=== PATIENT | female | born 1960 | race African-American/Black ===

== ENCOUNTER 2023-07-27 05:44 | Emergency (ER) | payer MEDICARE, MEDICAID ==
[~2023-07-27] VITALS: Ht 162.6 cm; Wt 180.0 kg
[2023-07-27 06:24] VITALS: BP 142/79; PULSE 68; RESP 18; O2SAT 99
[2023-07-29] MEDS ORDERED: KEPP500 MT (10:36)
== END 2023-07-27 11:02 | disposition left against medical advice (07) ==
LOC: ER 05:44
DX: R07.89 Other chest pain (principal); M54.9 Dorsalgia, unspecified; Z53.21 Procedure and treatment not carried out due to patient leaving prior to being seen by health care provider
CPT/HCPCS: 99281

== ENCOUNTER 2023-08-05 22:18 | Emergency (ER) | payer MEDICAID, MEDICARE ==
[~2023-08-05] VITALS: Ht 165.1 cm; Wt 100.0 kg
[~2023-08-05 22:18] MED LIST: AMLO10TA80 MT; KEPP500 MT
[2023-08-05 22:33] VITALS: BP 139/85; PULSE 100; RESP 20; TEMP 97.6; O2SAT 98
[2023-08-05] MEDS ORDERED: LEVETIRACETAM 500MG TABLET PO ONE (23:00)
[2023-08-05] MEDS ORDERED: LEVETIRACETAM 500MG TABLET PO NR (23:15)
[2023-08-05 23:20] LABS: BASOPHILS % 0.5 % (0.0-2.0); EOSINOPHILS % 0.3 % (0.0-5.0); HEMATOCRIT. 39.8 % (36.0-48.0); HEMOGLOBIN. 13.4 g/dL (12.0-16.0); LYMPHOCYTES % 18.7 % (20.0-50.0); MEAN CORPUSCULAR HEMOGLOBIN 32.1 pg (28.0-32.0); MEAN CORPUSCULAR HGB CONC 33.5 g/dL (31.0-37.0); MEAN CORPUSCULAR VOLUME 95.6 fL (81.0-99.0); MEAN PLATELET VOLUME 8.7 fl (7.4-10.4); NEUTROPHILS % 74.5 % (40.0-76.0); PLATELET 275 x1000/uL (130-400); RED BLOOD CELL COUNT 4.17 mill/uL (4.2-5.4); RED CELL DISTRIBUTION WIDTH 13.7 % (11.6-14.6); WHITE BLOOD COUNT 8.1 x1000/uL (4.5-11.0)
[2023-08-05 23:38] LABS: ALANINE AMINOTRANSFERASE 9 IU/L (10-49); ALBUMIN 4.5 g/dL (3.2-4.8); ASPARTATE AMINOTRANSFERASE 13 IU/L (<34); BILIRUBIN TOTAL 0.3 mg/dL (0.1-1.0); CALCIUM 9.4 mg/dL (8.7-10.4); CARBON DIOXIDE 24 mEq/L (21-32); CHLORIDE 103 mEq/L (98-107); CREATININE 0.9 mg/dL (0.6-1.0); GLUCOSE 106 mg/dL (70-105); POTASSIUM 3.5 mEq/L (3.5-5.1); PROTEIN TOTAL 8.8 g/dL (6.0-8.3); SODIUM 136 mEq/L (136-145); UREA NITROGEN BLOOD 19 mg/dL (9-23)
[2023-08-06 00:16] LABS: ETHANOL BLOOD < 10 mg/dL (<10)
[2023-08-06] MEDS ORDERED: LEVE1000 MT (03:59)
== END 2023-08-06 04:16 | disposition home or self-care (01) ==
LOC: ER 22:18
DX: R56.9 Unspecified convulsions (principal); I50.9 Heart failure, unspecified; I11.0 Hypertensive heart disease with heart failure; Z88.6 Allergy status to analgesic agent; Z88.5 Allergy status to narcotic agent; Z88.8 Allergy status to other drugs, medicaments and biological substances
CPT/HCPCS: 36415; 80053; 80320; 82962; 85025; 99283; G0480

== ENCOUNTER 2023-08-09 02:35 | Emergency (ER) | payer MEDICARE, MEDICAID ==
[~2023-08-09] VITALS: Ht 165.1 cm; Wt 81.6 kg
[~2023-08-09 02:35] MED LIST changes: +LEVE1000 MT
[2023-08-09 03:23] VITALS: BP 163/93; PULSE 87; RESP 16; TEMP 98.5; O2SAT 98
[2023-08-09] MEDS ORDERED: KEPP500 PO (06:21)
[2023-08-09] MEDS ORDERED: AMLO10TA80 PO (06:21)
[2023-08-09] MEDS ORDERED: FAMO20TA8 PO (06:21)
[2023-08-09] MEDS ORDERED: LEVE1000 PO (06:21)
[2023-08-09] MEDS ORDERED: LEVETIRACETAM 500MG/5ML CUP PO ONE (07:30)
== END 2023-08-09 08:04 | disposition home or self-care (01) ==
LOC: ER 02:35
DX: Z76.0 Encounter for issue of repeat prescription (principal); I11.0 Hypertensive heart disease with heart failure; I50.9 Heart failure, unspecified; Z86.59 Personal history of other mental and behavioral disorders; Z98.890 Other specified postprocedural states; Z79.899 Other long term (current) drug therapy; Z88.0 Allergy status to penicillin; Z88.6 Allergy status to analgesic agent; Z88.9 Allergy status to unspecified drugs, medicaments and biological substances; Z88.5 Allergy status to narcotic agent; Z88.8 Allergy status to other drugs, medicaments and biological substances
CPT/HCPCS: 99283

== ENCOUNTER 2024-04-16 19:54 | Emergency (ER) | payer BC, MEDICAID ==
[~2024-04-16] VITALS: Ht 165.1 cm; Wt 94.0 kg
[~2024-04-16 19:54] MED LIST changes: +AMLO10TA80 PO; +FAMO20TA8 PO; +KEPP500 PO; +LEVE1000 PO
[2024-04-16 20:16] VITALS: O2SAT 99
[2024-04-17 00:57] LABS: BASOPHILS % 0.7 % (0.0-2.0); EOSINOPHILS % 1.7 % (0.0-5.0); HEMOGLOBIN. 12.7 g/dL (12.0-16.0); LYMPHOCYTES % 27.3 % (20.0-50.0); MEAN CORPUSCULAR HEMOGLOBIN 32.2 pg (28.0-32.0); MEAN CORPUSCULAR HGB CONC 33.4 g/dL (31.0-37.0); MEAN CORPUSCULAR VOLUME 96.4 fL (81.0-99.0); MEAN PLATELET VOLUME 8.2 fl (7.4-10.4); MONOCYTES % 8.8 % (2.0-8.0); NEUTROPHILS % 61.5 % (40.0-76.0); PLATELET 232 x1000/uL (130-400); RED BLOOD CELL COUNT 3.95 mill/uL (4.2-5.4); RED CELL DISTRIBUTION WIDTH 14.8 % (11.6-14.6); WHITE BLOOD COUNT 6.7 x1000/uL (4.5-11.0)
[2024-04-17 01:00] LABS: CARBON DIOXIDE 25 mEq/L (21-32); CHLORIDE 104 mEq/L (98-107); POTASSIUM 3.2 mEq/L (3.5-5.1); SODIUM 137 mEq/L (136-145)
[2024-04-17 01:06] LABS: GLUCOSE 136 mg/dL (70-105); UREA NITROGEN BLOOD 20 mg/dL (9-23)
[2024-04-17 01:07] LABS: TROPONIN I HIGH SENSITIVITY 4 ng/L (3.0-34)
[2024-04-17] MEDS ORDERED: LEVE1000 MT (01:56)
[2024-04-17 01:58] VITALS: BP 132/76; PULSE 90; RESP 18; TEMP 36.66960; O2SAT 99
[2024-04-17] MEDS ORDERED: POTASSIUM CHLORIDE 20MEQ/PACKET PO ONE (02:00)
[2024-04-17] MEDS ORDERED: LEVETIRACETAM 500MG TABLET PO ONE (02:00)
== END 2024-04-17 01:59 | disposition home or self-care (01) ==
LOC: ER 19:54
DX: G40.909 Epilepsy, unspecified, not intractable, without status epilepticus (principal); G43.909 Migraine, unspecified, not intractable, without status migrainosus; E87.6 Hypokalemia; F20.9 Schizophrenia, unspecified; Z88.1 Allergy status to other antibiotic agents; Z88.5 Allergy status to narcotic agent; Z88.6 Allergy status to analgesic agent; Z88.8 Allergy status to other drugs, medicaments and biological substances; Z79.899 Other long term (current) drug therapy
CPT/HCPCS: 36415; 71045; 80048; 82542; 84484; 85025; 93005; 99285

== ENCOUNTER 2024-04-17 02:01 | Emergency (ER) | payer BC, MEDICAID ==
[~2024-04-17] VITALS: Ht 166.4 cm; Wt 86.0 kg
[2024-04-17 02:12] VITALS: O2SAT 100
[2024-04-17 04:29] LABS: CHLORIDE 104 mEq/L (98-107); POTASSIUM 3.4 mEq/L (3.5-5.1)
[2024-04-17 04:30] LABS: SODIUM 138 mEq/L (136-145)
[2024-04-17 04:31] LABS: CARBON DIOXIDE 28 mEq/L (21-32)
[2024-04-17 04:32] LABS: BASOPHILS % 0.5 % (0.0-2.0); EOSINOPHILS % 1.9 % (0.0-5.0); HEMATOCRIT. 35.9 % (36.0-48.0); HEMOGLOBIN. 12.2 g/dL (12.0-16.0); LYMPHOCYTES % 25.3 % (20.0-50.0); MEAN CORPUSCULAR HEMOGLOBIN 32.4 pg (28.0-32.0); MEAN CORPUSCULAR HGB CONC 33.9 g/dL (31.0-37.0); MEAN CORPUSCULAR VOLUME 95.5 fL (81.0-99.0); MEAN PLATELET VOLUME 8.3 fl (7.4-10.4); MONOCYTES % 10.8 % (2.0-8.0); NEUTROPHILS % 61.5 % (40.0-76.0); PLATELET 237 x1000/uL (130-400); RED BLOOD CELL COUNT 3.76 mill/uL (4.2-5.4); RED CELL DISTRIBUTION WIDTH 14.7 % (11.6-14.6)
[2024-04-17 04:35] LABS: CREATININE 0.9 mg/dL (0.6-1.0)
[2024-04-17 04:36] LABS: GLUCOSE 92 mg/dL (70-105); UREA NITROGEN BLOOD 19 mg/dL (9-23)
[2024-04-17 04:38] LABS: ACETAMINOPHEN < 2 ug/mL (10-30)
[2024-04-17 04:49] LABS: ETHANOL BLOOD < 10 mg/dL (<10)
[2024-04-17 06:00] LABS: CLARITY URINE CLEAR (CLEAR); COLOR URINE YELLOW (YELLOW); GLUCOSE URINE NEGATIVE (NEGATIVE); KETONES URINE NEGATIVE (NEGATIVE); LEUKOCYTE ESTERASE URINE NEGATIVE (NEGATIVE); NITRITE URINE NEGATIVE (NEGATIVE); OCCULT BLOOD URINE NEGATIVE (NEGATIVE); PH URINE 5.5 (4.5-8.0); PROTEIN URINE TRACE (NEGATIVE); SPECIFIC GRAVITY URINE 1.028 (1.005-1.030)
[2024-04-17 06:26] LABS: *AMPHETAMINES SCREEN URINE NEGATIVE (NEGATIVE); *BARBITURATES SCREEN URINE NEGATIVE (NEGATIVE); *BENZODIAZEPINES SCREEN URINE PRESUMPTIVE POSITIVE (NEGATIVE)
[2024-04-17 06:27] LABS: *COCAINE SCREEN URINE PRESUMPTIVE POSITIVE (NEGATIVE); CANNABINOID URINE SCREEN NEGATIVE (NEGATIVE); ECSTASY MDMA SCREEN URINE NEGATIVE (NEGATIVE); METHADONE URINE SCREEN NEGATIVE (NEGATIVE); OPIATES URINE SCREEN NEGATIVE (NEGATIVE); PHENCYCLIDINE URINE SCREEN PRESUMTIVE POSITIVE (NEGATIVE)
[2024-04-17 07:16] LABS: RBC URINE 0-2 /hpf (0-2); SQUAMOUS EPITHELIAL CELL URINE 1+ /lpf (RARE/1+); WBC URINE 0-2 /hpf (0-2)
[2024-04-17 07:17] LABS: BACTERIA URINE NONE SEEN; CALCIUM OXALATE CRYSTALS URINE 1+ /lpf
[2024-04-17] MEDS: LEVETIRACETAM 500MG TABLET PO SCH (09:00)
[2024-04-17] MEDS: RISPERIDONE 1MG TABLET PO SCH (22:00)
[2024-04-18 11:44] VITALS: BP 121/59; PULSE 80; RESP 20; TEMP 36.61404; O2SAT 100
== END 2024-04-18 11:55 ==
LOC: ER 02:01
DX: R44.0 Auditory hallucinations (principal); G40.909 Epilepsy, unspecified, not intractable, without status epilepticus; I10 Essential (primary) hypertension; F31.9 Bipolar disorder, unspecified; G43.909 Migraine, unspecified, not intractable, without status migrainosus; F17.210 Nicotine dependence, cigarettes, uncomplicated; J45.909 Unspecified asthma, uncomplicated; Z20.822 Contact with and (suspected) exposure to COVID-19; Z79.899 Other long term (current) drug therapy; Z88.8 Allergy status to other drugs, medicaments and biological substances; Z88.6 Allergy status to analgesic agent; Z88.5 Allergy status to narcotic agent; Z88.1 Allergy status to other antibiotic agents
CPT/HCPCS: 36415; 80048; 80305; 80307; 80320; 80329; 81003; 85025; 87426; 99285; G0480

== ENCOUNTER 2024-04-29 02:00 | Emergency (ER) | payer BC, MEDICAID ==
[~2024-04-29] VITALS: Ht 165.1 cm; Wt 84.0 kg
[2024-04-29 02:25] VITALS: O2SAT 98
[2024-04-29 03:08] LABS: BASOPHILS % 0.7 % (0.0-2.0); HEMATOCRIT. 37.7 % (36.0-48.0); HEMOGLOBIN. 12.1 g/dL (12.0-16.0); LYMPHOCYTES % 15.1 % (20.0-50.0); MEAN CORPUSCULAR HEMOGLOBIN 31.2 pg (28.0-32.0); MEAN CORPUSCULAR VOLUME 97.6 fL (81.0-99.0); MEAN PLATELET VOLUME 8.5 fl (7.4-10.4); MONOCYTES % 6.7 % (2.0-8.0); NEUTROPHILS % 73.5 % (40.0-76.0); PLATELET 313 x1000/uL (130-400); RED BLOOD CELL COUNT 3.86 mill/uL (4.2-5.4); RED CELL DISTRIBUTION WIDTH 14.9 % (11.6-14.6); WHITE BLOOD COUNT 7.7 x1000/uL (4.5-11.0)
[2024-04-29 03:25] LABS: CLARITY URINE CLOUDY (CLEAR); COLOR URINE YELLOW (YELLOW); GLUCOSE URINE NEGATIVE (NEGATIVE); KETONES URINE NEGATIVE (NEGATIVE); LEUKOCYTE ESTERASE URINE TRACE (NEGATIVE); NITRITE URINE NEGATIVE (NEGATIVE); OCCULT BLOOD URINE NEGATIVE (NEGATIVE); PH URINE 6.5 (4.5-8.0); PROTEIN URINE TRACE (NEGATIVE); SPECIFIC GRAVITY URINE 1.019 (1.005-1.030)
[2024-04-29 03:32] LABS: *AMPHETAMINES SCREEN URINE NEGATIVE (NEGATIVE); *BARBITURATES SCREEN URINE NEGATIVE (NEGATIVE); *BENZODIAZEPINES SCREEN URINE NEGATIVE (NEGATIVE); *COCAINE SCREEN URINE PRESUMPTIVE POSITIVE (NEGATIVE); CANNABINOID URINE SCREEN NEGATIVE (NEGATIVE); ECSTASY MDMA SCREEN URINE NEGATIVE (NEGATIVE); METHADONE URINE SCREEN NEGATIVE (NEGATIVE); OPIATES URINE SCREEN NEGATIVE (NEGATIVE); PHENCYCLIDINE URINE SCREEN PRESUMTIVE POSITIVE (NEGATIVE)
[2024-04-29 04:01] LABS: BACTERIA URINE 1+; RBC URINE 0-2 /hpf (0-2); SQUAMOUS EPITHELIAL CELL URINE 1+ /lpf (RARE/1+)
[2024-04-29 08:02] LABS: CHLORIDE 110 mEq/L (98-107); POTASSIUM 3.4 mEq/L (3.5-5.1); SODIUM 143 mEq/L (136-145)
[2024-04-29 08:03] LABS: CALCIUM 9.2 mg/dL (8.7-10.4); CARBON DIOXIDE 29 mEq/L (21-32)
[2024-04-29 08:08] LABS: CREATININE 0.8 mg/dL (0.6-1.0); GLUCOSE 92 mg/dL (70-105); UREA NITROGEN BLOOD 13 mg/dL (9-23)
[2024-04-29 08:10] LABS: ACETAMINOPHEN < 2 ug/mL (10-30)
[2024-04-29 08:12] LABS: ETHANOL BLOOD < 10 mg/dL (<10)
[2024-04-29 14:00] VITALS: BP 149/66; PULSE 72; RESP 18; TEMP 36.89184; O2SAT 100
[2024-04-29] MEDS ORDERED: RISPERIDONE 1MG TABLET PO SCH (21:00)
[2024-05-08] MEDS ORDERED: ATOR40TA70 PO (03:52)
[2024-05-08] MEDS ORDERED: AMLO5TAB88 PO (03:52)
[2024-05-08] MEDS ORDERED: ARIP10TA56 PO (03:52)
[2024-05-08] MEDS ORDERED: LEVE10006 PO (03:52)
== END 2024-04-29 14:15 ==
LOC: ER 02:55
DX: R45.851 Suicidal ideations (principal); J45.909 Unspecified asthma, uncomplicated; I10 Essential (primary) hypertension; Z20.822 Contact with and (suspected) exposure to COVID-19; Z88.8 Allergy status to other drugs, medicaments and biological substances; Z88.5 Allergy status to narcotic agent; Z88.6 Allergy status to analgesic agent; Z88.1 Allergy status to other antibiotic agents; Z79.899 Other long term (current) drug therapy; Z86.59 Personal history of other mental and behavioral disorders; Z98.890 Other specified postprocedural states
CPT/HCPCS: 36415; 80048; 80305; 80307; 80320; 80329; 81003; 85025; 87426; 99285; G0480

== ENCOUNTER 2024-07-04 15:06 | Emergency (ER) | payer BC, MEDICAID ==
[~2024-07-04] VITALS: Ht 165.1 cm; Wt 90.7 kg
[~2024-07-04 15:06] MED LIST changes: -AMLO10TA80 MT; -AMLO10TA80 PO; +AMLO5TAB88 PO; +ARIP10TA86 PO; +ATOR40TA70 PO; -KEPP500 MT; -KEPP500 PO; -LEVE1000 MT; -LEVE1000 PO; +LEVE10006 PO
[2024-07-04 15:21] VITALS: O2SAT 96
[2024-07-04 15:56] LABS: BASOPHILS % 0.4 % (0.0-2.0); EOSINOPHILS % 0.8 % (0.0-5.0); HEMATOCRIT. 42.4 % (36.0-48.0); HEMOGLOBIN. 14.1 g/dL (12.0-16.0); LYMPHOCYTES % 19.4 % (20.0-50.0); MEAN CORPUSCULAR HEMOGLOBIN 32.2 pg (28.0-32.0); MEAN CORPUSCULAR HGB CONC 33.1 g/dL (31.0-37.0); MEAN CORPUSCULAR VOLUME 97.1 fL (81.0-99.0); MONOCYTES % 7.7 % (2.0-8.0); NEUTROPHILS % 71.7 % (40.0-76.0); RED BLOOD CELL COUNT 4.37 mill/uL (4.2-5.4); WHITE BLOOD COUNT 7.2 x1000/uL (4.5-11.0)
[2024-07-04 16:01] LABS: CHLORIDE 105 mEq/L (98-107); DIFFERENTIAL COMMENT 1; POTASSIUM 3.9 mEq/L (3.5-5.1); SODIUM 137 mEq/L (136-145)
[2024-07-04 16:02] LABS: CARBON DIOXIDE 22 mEq/L (21-32)
[2024-07-04 16:03] LABS: CALCIUM 9.4 mg/dL (8.7-10.4)
[2024-07-04 16:07] LABS: CREATININE 0.7 mg/dL (0.6-1.0)
[2024-07-04 16:08] LABS: GLUCOSE 121 mg/dL (70-105); UREA NITROGEN BLOOD 10 mg/dL (9-23)
[2024-07-04 16:09] LABS: ALANINE AMINOTRANSFERASE 18 IU/L (10-49); ALBUMIN 4.4 g/dL (3.2-4.8); ASPARTATE AMINOTRANSFERASE 22 IU/L (<34)
[2024-07-04 16:10] LABS: BILIRUBIN DIRECT 0.2 mg/dL (<=3.0); BILIRUBIN TOTAL 0.5 mg/dL (0.1-1.0); PROTEIN TOTAL 7.7 g/dL (6.0-8.3)
[2024-07-04 17:36] LABS: MEAN PLATELET VOLUME 7.9 fl (7.4-10.4); PLATELET 209 x1000/uL (130-400)
[2024-07-04] MEDS: FAMOTIDINE 20MG TABLET PO ONE (20:02)
[2024-07-04] MEDS: ONDANSETRON 4MG ODT PO ONE (20:02)
[2024-07-04 20:09] LABS: CLARITY URINE CLEAR (CLEAR); COLOR URINE YELLOW (YELLOW); GLUCOSE URINE NEGATIVE (NEGATIVE); KETONES URINE NEGATIVE (NEGATIVE); LEUKOCYTE ESTERASE URINE NEGATIVE (NEGATIVE); NITRITE URINE NEGATIVE (NEGATIVE); OCCULT BLOOD URINE NEGATIVE (NEGATIVE); PH URINE 5.5 (4.5-8.0); PROTEIN URINE NEGATIVE (NEGATIVE); SPECIFIC GRAVITY URINE 1.022 (1.005-1.030); UROBILINOGEN URINE 0.2 E.U./dL (0.2-1.0)
[2024-07-04 20:16] LABS: *AMPHETAMINES SCREEN URINE NEGATIVE (NEGATIVE); *BENZODIAZEPINES SCREEN URINE NEGATIVE (NEGATIVE)
[2024-07-04 20:17] LABS: *BARBITURATES SCREEN URINE NEGATIVE (NEGATIVE); *COCAINE SCREEN URINE PRESUMPTIVE POSITIVE (NEGATIVE); CANNABINOID URINE SCREEN NEGATIVE (NEGATIVE); ECSTASY MDMA SCREEN URINE NEGATIVE (NEGATIVE); METHADONE URINE SCREEN NEGATIVE (NEGATIVE); OPIATES URINE SCREEN NEGATIVE (NEGATIVE); PHENCYCLIDINE URINE SCREEN PRESUMTIVE POSITIVE (NEGATIVE)
[2024-07-05] MEDS ORDERED: LEVETIRACETAM 100MG/ML ORAL SYR PO ONE (00:30)
[2024-07-05 02:07] LABS: ACETAMINOPHEN < 2 ug/mL (10-30)
[2024-07-05 02:14] LABS: ETHANOL BLOOD < 10 mg/dL (<10)
[2024-07-05] MEDS: LEVETIRACETAM 500MG/5ML CUP PO NR (02:29)
[2024-07-06 14:46] VITALS: BP 122/70; PULSE 80; RESP 16; TEMP 36.89184; O2SAT 97
== END 2024-07-06 15:21 ==
LOC: ER 15:06
DX: R45.851 Suicidal ideations (principal); I10 Essential (primary) hypertension; Z88.8 Allergy status to other drugs, medicaments and biological substances; Z88.6 Allergy status to analgesic agent; Z88.5 Allergy status to narcotic agent; Z88.1 Allergy status to other antibiotic agents; Z79.899 Other long term (current) drug therapy; Z98.890 Other specified postprocedural states; Z20.822 Contact with and (suspected) exposure to COVID-19
CPT/HCPCS: 80076; 80305; 80048; 81003; 80307; 80329; 80320; 83690; 85025; 86850; 86900; 86901; 87804 ×2; 36415; 74176; 99285; 87426; Q0162; G0480

== ENCOUNTER 2024-07-21 18:43 | Emergency (ER) | payer MEDICARE, MEDICAID ==
[~2024-07-21] VITALS: Ht 165.1 cm; Wt 90.0 kg
[2024-07-21 18:52] VITALS: O2SAT 97
[2024-07-21] MEDS: MORPHINE SULFATE 4 MG/ML INJ (FOR IV/IM USE) IM STA (23:04)
[2024-07-22 01:36] LABS: BASOPHILS % 0.4 % (0.0-2.0); EOSINOPHILS % 2.1 % (0.0-5.0); HEMATOCRIT. 35.8 % (36.0-48.0); HEMOGLOBIN. 12.2 g/dL (12.0-16.0); LYMPHOCYTES % 34.6 % (20.0-50.0); MEAN CORPUSCULAR HEMOGLOBIN 31.8 pg (28.0-32.0); MEAN CORPUSCULAR HGB CONC 34.1 g/dL (31.0-37.0); MEAN CORPUSCULAR VOLUME 93.5 fL (81.0-99.0); MEAN PLATELET VOLUME 7.7 fl (7.4-10.4); MONOCYTES % 10.1 % (2.0-8.0); NEUTROPHILS % 52.8 % (40.0-76.0); PLATELET 285 x1000/uL (130-400); RED BLOOD CELL COUNT 3.83 mill/uL (4.2-5.4); RED CELL DISTRIBUTION WIDTH 13.6 % (11.6-14.6); WHITE BLOOD COUNT 6.9 x1000/uL (4.5-11.0)
[2024-07-22 01:45] LABS: CHLORIDE 104 mEq/L (98-107); POTASSIUM 3.3 mEq/L (3.5-5.1); SODIUM 138 mEq/L (136-145)
[2024-07-22 01:46] LABS: CALCIUM 9.1 mg/dL (8.7-10.4); CARBON DIOXIDE 26 mEq/L (21-32)
[2024-07-22 01:51] LABS: CREATININE 0.7 mg/dL (0.6-1.0); GLUCOSE 96 mg/dL (70-105); UREA NITROGEN BLOOD 10 mg/dL (9-23)
[2024-07-22 01:53] LABS: ACETAMINOPHEN < 2 ug/mL (10-30)
[2024-07-22 01:54] LABS: ETHANOL BLOOD < 10 mg/dL (<10)
[2024-07-22] MEDS: MORPHINE SULFATE 4 MG/ML INJ (FOR IV/IM USE) IM ONE (02:19)
[2024-07-22 07:03] LABS: CLARITY URINE CLEAR (CLEAR); COLOR URINE YELLOW (YELLOW); GLUCOSE URINE NEGATIVE (NEGATIVE); KETONES URINE NEGATIVE (NEGATIVE); LEUKOCYTE ESTERASE URINE NEGATIVE (NEGATIVE); NITRITE URINE NEGATIVE (NEGATIVE); OCCULT BLOOD URINE NEGATIVE (NEGATIVE); PH URINE 6.5 (4.5-8.0); PROTEIN URINE NEGATIVE (NEGATIVE); SPECIFIC GRAVITY URINE 1.016 (1.005-1.030); UROBILINOGEN URINE 0.2 E.U./dL (0.2-1.0)
[2024-07-22 07:51] LABS: *AMPHETAMINES SCREEN URINE NEGATIVE (NEGATIVE); *BARBITURATES SCREEN URINE NEGATIVE (NEGATIVE); *BENZODIAZEPINES SCREEN URINE NEGATIVE (NEGATIVE); *COCAINE SCREEN URINE PRESUMPTIVE POSITIVE (NEGATIVE); CANNABINOID URINE SCREEN NEGATIVE (NEGATIVE); ECSTASY MDMA SCREEN URINE NEGATIVE (NEGATIVE); METHADONE URINE SCREEN NEGATIVE (NEGATIVE); OPIATES URINE SCREEN PRESUMPTIVE POSITIVE (NEGATIVE); PHENCYCLIDINE URINE SCREEN PRESUMTIVE POSITIVE (NEGATIVE)
[2024-07-23] MEDS: KETOROLAC 30MG/ML VIAL IM STA (01:08)
[2024-07-23] MEDS: MORPHINE SULFATE 4 MG/ML INJ (FOR IV/IM USE) IM ONE (01:53)
[2024-07-23] MEDS: LIDOCAINE 5% PATCH TOP SCH (10:45)
[2024-07-23] MEDS: AMLODIPINE 5MG TABLET PO SCH (10:52)
[2024-07-23 10:57] VITALS: BP 168/72; PULSE 65; RESP 18; TEMP 36.66960; O2SAT 100
[2024-07-23] MEDS ORDERED: RISPERIDONE 1MG TABLET PO SCH (21:00)
== END 2024-07-23 13:54 | disposition short-term general hospital (02) ==
LOC: ER 18:43
DX: R45.851 Suicidal ideations (principal); F20.9 Schizophrenia, unspecified; I10 Essential (primary) hypertension; G40.909 Epilepsy, unspecified, not intractable, without status epilepticus; Z79.899 Other long term (current) drug therapy; Z88.1 Allergy status to other antibiotic agents; Z88.5 Allergy status to narcotic agent; Z88.6 Allergy status to analgesic agent; Z88.8 Allergy status to other drugs, medicaments and biological substances; Z98.51 Tubal ligation status
CPT/HCPCS: 80305; 80048; 81001; 81003; 80307; 80329; 80320; 85025; 36415; 96372 ×2; 99285; 87426; J2270 ×3; G0480

== ENCOUNTER 2024-08-18 13:22 | Emergency (ER) | payer MEDICAID, MEDICARE ==
[~2024-08-18] VITALS: Ht 165.1 cm; Wt 91.0 kg
[2024-08-18 13:39] VITALS: O2SAT 97
[2024-08-18 14:54] LABS: CLARITY URINE CLEAR (CLEAR); COLOR URINE YELLOW (YELLOW); GLUCOSE URINE NEGATIVE (NEGATIVE); KETONES URINE NEGATIVE (NEGATIVE); LEUKOCYTE ESTERASE URINE TRACE (NEGATIVE); NITRITE URINE NEGATIVE (NEGATIVE); OCCULT BLOOD URINE NEGATIVE (NEGATIVE); PROTEIN URINE TRACE (NEGATIVE); SPECIFIC GRAVITY URINE 1.015 (1.005-1.030); UROBILINOGEN URINE 0.2 E.U./dL (0.2-1.0)
[2024-08-18 15:01] LABS: *AMPHETAMINES SCREEN URINE NEGATIVE (NEGATIVE)
[2024-08-18 15:02] LABS: *BARBITURATES SCREEN URINE NEGATIVE (NEGATIVE); *BENZODIAZEPINES SCREEN URINE NEGATIVE (NEGATIVE); *COCAINE SCREEN URINE PRESUMPTIVE POSITIVE (NEGATIVE); CANNABINOID URINE SCREEN NEGATIVE (NEGATIVE); ECSTASY MDMA SCREEN URINE NEGATIVE (NEGATIVE); METHADONE URINE SCREEN NEGATIVE (NEGATIVE); OPIATES URINE SCREEN NEGATIVE (NEGATIVE); PHENCYCLIDINE URINE SCREEN PRESUMTIVE POSITIVE (NEGATIVE)
[2024-08-18 15:12] LABS: BACTERIA URINE 1+; RBC URINE 0-2 /hpf (0-2); SQUAMOUS EPITHELIAL CELL URINE 1+ /lpf (RARE/1+); YEAST URINE NONE SEEN
[2024-08-18 15:24] LABS: BASOPHILS % 0.4 % (0.0-2.0); EOSINOPHILS % 3.1 % (0.0-5.0); HEMATOCRIT. 38.5 % (36.0-48.0); HEMOGLOBIN. 13.1 g/dL (12.0-16.0); LYMPHOCYTES % 23.9 % (20.0-50.0); MONOCYTES % 7.1 % (2.0-8.0); NEUTROPHILS % 65.5 % (40.0-76.0); PLATELET 267 x1000/uL (130-400); RED CELL DISTRIBUTION WIDTH 13.8 % (11.6-14.6); WHITE BLOOD COUNT 6.6 x1000/uL (4.5-11.0)
[2024-08-18 15:31] LABS: CHLORIDE 106 mEq/L (98-107); POTASSIUM 3.3 mEq/L (3.5-5.1); SODIUM 139 mEq/L (136-145)
[2024-08-18 15:32] LABS: CALCIUM 9.7 mg/dL (8.7-10.4); CARBON DIOXIDE 21 mEq/L (21-32)
[2024-08-18 15:37] LABS: CREATININE 0.8 mg/dL (0.6-1.0); GLUCOSE 175 mg/dL (70-105); UREA NITROGEN BLOOD 15 mg/dL (9-23)
[2024-08-18 15:39] LABS: ACETAMINOPHEN < 2 ug/mL (10-30)
[2024-08-18 16:12] LABS: ETHANOL BLOOD < 10 mg/dL (<10)
[2024-08-18] MEDS: POTASSIUM CHLORIDE 20MEQ TABLET SR PO ONE (17:21)
[2024-08-18] MEDS: NITROFURANTOIN 100MG M/M CAPSULE PO SCH (21:00)
[2024-08-18] MEDS: AMLODIPINE 10MG TABLET PO STA (21:41)
[2024-08-18] MEDS: AMLODIPINE 5MG TABLET PO NR (22:18)
[2024-08-18] MEDS: LEVETIRACETAM 500MG TABLET PO STA (22:18)
[2024-08-19 14:04] VITALS: TEMP 36.8
[2024-08-19 15:30] VITALS: O2SAT 100
[2024-08-19 15:49] VITALS: BP 123/68; PULSE 97; RESP 18
[2024-08-19] MEDS: IBUPROFEN 800MG TABLET PO ONE (15:49)
== END 2024-08-19 15:55 ==
LOC: ER 13:46
DX: R45.851 Suicidal ideations (principal); N39.0 Urinary tract infection, site not specified; F14.10 Cocaine abuse, uncomplicated; F20.9 Schizophrenia, unspecified; F31.9 Bipolar disorder, unspecified; I10 Essential (primary) hypertension; Z79.899 Other long term (current) drug therapy; Z88.1 Allergy status to other antibiotic agents; Z88.5 Allergy status to narcotic agent; Z88.6 Allergy status to analgesic agent; Z88.8 Allergy status to other drugs, medicaments and biological substances; Z91.148 Patient's other noncompliance with medication regimen for other reason; Z96.659 Presence of unspecified artificial knee joint; Z98.51 Tubal ligation status; Z20.822 Contact with and (suspected) exposure to COVID-19
CPT/HCPCS: 36415; 80048; 80305; 80307; 80320; 80329; 81003; 85025; 87426; 99285; G0480

== ENCOUNTER 2024-09-19 14:51 | Emergency (ER) | payer BC, MEDICARE ==
[~2024-09-19] VITALS: Ht 160 cm; Wt 107.9 kg
[2024-09-19 15:05] VITALS: O2SAT 97
[2024-09-19 16:24] LABS: BASOPHILS % 0.4 % (0.0-2.0); EOSINOPHILS % 1.6 % (0.0-5.0); HEMATOCRIT. 34.2 % (36.0-48.0); HEMOGLOBIN. 11.3 g/dL (12.0-16.0); LYMPHOCYTES % 26.4 % (20.0-50.0); MEAN CORPUSCULAR HEMOGLOBIN 31.3 pg (28.0-32.0); MEAN CORPUSCULAR HGB CONC 33.2 g/dL (31.0-37.0); MEAN CORPUSCULAR VOLUME 94.4 fL (81.0-99.0); MEAN PLATELET VOLUME 7.7 fl (7.4-10.4); MONOCYTES % 10.6 % (2.0-8.0); PLATELET 231 x1000/uL (130-400); RED BLOOD CELL COUNT 3.62 mill/uL (4.2-5.4); RED CELL DISTRIBUTION WIDTH 15.5 % (11.6-14.6)
[2024-09-19 16:33] LABS: CHLORIDE 104 mEq/L (98-107); POTASSIUM 3.5 mEq/L (3.5-5.1); SODIUM 140 mEq/L (136-145)
[2024-09-19 16:34] LABS: CALCIUM 8.7 mg/dL (8.7-10.4); CARBON DIOXIDE 27 mEq/L (21-32)
[2024-09-19 16:39] LABS: CREATININE 0.6 mg/dL (0.6-1.0); GLUCOSE 103 mg/dL (70-105); UREA NITROGEN BLOOD 12 mg/dL (9-23)
[2024-09-19 16:56] LABS: ETHANOL BLOOD < 10 mg/dL (<10)
[2024-09-19 21:55] LABS: CLARITY URINE CLEAR (CLEAR); COLOR URINE YELLOW (YELLOW); GLUCOSE URINE NEGATIVE (NEGATIVE); KETONES URINE NEGATIVE (NEGATIVE); LEUKOCYTE ESTERASE URINE NEGATIVE (NEGATIVE); NITRITE URINE NEGATIVE (NEGATIVE); OCCULT BLOOD URINE NEGATIVE (NEGATIVE); PROTEIN URINE NEGATIVE (NEGATIVE)
[2024-09-19] MEDS ORDERED: FUROSEMIDE 20MG TABLET PO ONE (22:00)
[2024-09-19 22:05] LABS: *AMPHETAMINES SCREEN URINE NEGATIVE (NEGATIVE); *BARBITURATES SCREEN URINE NEGATIVE (NEGATIVE); *BENZODIAZEPINES SCREEN URINE NEGATIVE (NEGATIVE); *COCAINE SCREEN URINE PRESUMPTIVE POSITIVE (NEGATIVE); CANNABINOID URINE SCREEN NEGATIVE (NEGATIVE); ECSTASY MDMA SCREEN URINE NEGATIVE (NEGATIVE); METHADONE URINE SCREEN NEGATIVE (NEGATIVE); OPIATES URINE SCREEN NEGATIVE (NEGATIVE); PHENCYCLIDINE URINE SCREEN PRESUMTIVE POSITIVE (NEGATIVE)
[2024-09-20] MEDS: LORAZEPAM 1MG TABLET PO NR (01:30)
[2024-09-20] MEDS: FUROSEMIDE 20MG TABLET PO NR (03:15)
[2024-09-21 04:40] VITALS: BP 118/68; PULSE 97; RESP 15; TEMP 36.8; O2SAT 99
== END 2024-09-21 11:27 | disposition home or self-care (01) ==
LOC: ER 14:51
DX: R44.0 Auditory hallucinations (principal); R45.851 Suicidal ideations; I11.0 Hypertensive heart disease with heart failure; I50.9 Heart failure, unspecified; J44.9 Chronic obstructive pulmonary disease, unspecified; F31.9 Bipolar disorder, unspecified; Z87.891 Personal history of nicotine dependence; Z91.51 Personal history of suicidal behavior; Z98.51 Tubal ligation status; Z88.6 Allergy status to analgesic agent; Z88.5 Allergy status to narcotic agent; Z88.1 Allergy status to other antibiotic agents; Z88.8 Allergy status to other drugs, medicaments and biological substances; Z59.86 Financial insecurity; Z79.899 Other long term (current) drug therapy; Z59.00 Homelessness unspecified; Z96.659 Presence of unspecified artificial knee joint; Z20.822 Contact with and (suspected) exposure to COVID-19
CPT/HCPCS: 36415; 80048; 80305; 80307; 80320; 81003; 85025; 87426; 99285; G0480

== ENCOUNTER 2024-10-01 21:30 | Emergency (ER) | payer MEDICARE, MEDICAID ==
[~2024-10-01] VITALS: Ht 165.1 cm; Wt 91.0 kg
[2024-10-01 22:00] VITALS: O2SAT 100
[2024-10-01 23:38] LABS: EOSINOPHILS % 1.1 % (0.0-5.0); HEMATOCRIT. 34.9 % (36.0-48.0); HEMOGLOBIN. 11.5 g/dL (12.0-16.0); MEAN CORPUSCULAR HEMOGLOBIN 31.9 pg (28.0-32.0); MEAN CORPUSCULAR HGB CONC 32.9 g/dL (31.0-37.0); MEAN CORPUSCULAR VOLUME 97.1 fL (81.0-99.0); MEAN PLATELET VOLUME 7.9 fl (7.4-10.4); NEUTROPHILS % 55.9 % (40.0-76.0); PLATELET 248 x1000/uL (130-400); RED BLOOD CELL COUNT 3.59 mill/uL (4.2-5.4); RED CELL DISTRIBUTION WIDTH 15.6 % (11.6-14.6); WHITE BLOOD COUNT 5.2 x1000/uL (4.5-11.0)
[2024-10-01 23:49] LABS: CHLORIDE 105 mEq/L (98-107); POTASSIUM 3.6 mEq/L (3.5-5.1); SODIUM 140 mEq/L (136-145)
[2024-10-01 23:50] LABS: CARBON DIOXIDE 28 mEq/L (21-32)
[2024-10-01 23:51] LABS: CALCIUM 8.9 mg/dL (8.7-10.4)
[2024-10-01 23:55] LABS: CREATININE 0.7 mg/dL (0.6-1.0); GLUCOSE 94 mg/dL (70-105); UREA NITROGEN BLOOD 13 mg/dL (9-23)
[2024-10-01 23:57] LABS: ACETAMINOPHEN < 2 ug/mL (10-30)
[2024-10-02 00:31] LABS: ETHANOL BLOOD < 10 mg/dL (<10)
[2024-10-02 02:16] LABS: CLARITY URINE CLEAR (CLEAR); COLOR URINE YELLOW (YELLOW); GLUCOSE URINE NEGATIVE (NEGATIVE); KETONES URINE NEGATIVE (NEGATIVE); LEUKOCYTE ESTERASE URINE NEGATIVE (NEGATIVE); NITRITE URINE NEGATIVE (NEGATIVE); OCCULT BLOOD URINE NEGATIVE (NEGATIVE); PH URINE 6.5 (4.5-8.0); PROTEIN URINE NEGATIVE (NEGATIVE); SPECIFIC GRAVITY URINE 1.014 (1.005-1.030)
[2024-10-02 02:54] LABS: *AMPHETAMINES SCREEN URINE NEGATIVE (NEGATIVE); *BARBITURATES SCREEN URINE NEGATIVE (NEGATIVE); *BENZODIAZEPINES SCREEN URINE NEGATIVE (NEGATIVE); *COCAINE SCREEN URINE PRESUMPTIVE POSITIVE (NEGATIVE); METHADONE URINE SCREEN NEGATIVE (NEGATIVE); OPIATES URINE SCREEN NEGATIVE (NEGATIVE)
[2024-10-02 02:55] LABS: CANNABINOID URINE SCREEN NEGATIVE (NEGATIVE); ECSTASY MDMA SCREEN URINE NEGATIVE (NEGATIVE); PHENCYCLIDINE URINE SCREEN PRESUMTIVE POSITIVE (NEGATIVE)
[2024-10-03] MEDS ORDERED: AMLODIPINE 10MG TABLET PO SCH (05:15)
[2024-10-03] MEDS: LEVETIRACETAM 500MG TABLET PO ONE (05:32)
[2024-10-03] MEDS: AMLODIPINE 5MG TABLET PO SCH (05:41)
[2024-10-03 12:22] VITALS: BP 104/54; PULSE 92; RESP 18; TEMP 36.6; O2SAT 98
== END 2024-10-03 13:05 | disposition short-term general hospital (02) ==
LOC: ER 21:30
DX: R45.851 Suicidal ideations (principal); F14.10 Cocaine abuse, uncomplicated; F16.10 Hallucinogen abuse, uncomplicated; I10 Essential (primary) hypertension; J44.9 Chronic obstructive pulmonary disease, unspecified; Z91.148 Patient's other noncompliance with medication regimen for other reason; Z88.8 Allergy status to other drugs, medicaments and biological substances; Z88.5 Allergy status to narcotic agent; Z88.1 Allergy status to other antibiotic agents; Z88.6 Allergy status to analgesic agent; Z20.822 Contact with and (suspected) exposure to COVID-19; Z98.890 Other specified postprocedural states; Z79.899 Other long term (current) drug therapy; Z98.51 Tubal ligation status; Z86.59 Personal history of other mental and behavioral disorders
CPT/HCPCS: 36415; 80048; 80305; 80307; 80320; 80329; 81003; 85025; 87426; 99285; G0480